=== PATIENT | female | born 1985 | race Caucasian/White ===

== ENCOUNTER 2017-05-31 18:24 | Emergency (ER) | payer OTHER ==
[2017-05-31 18:29] VITALS: BP 99/56
[2017-05-31 19:11] LABS: BILIRUBIN,URINE NEGATIVE (NEGATIVE); BLOOD/HEMOGLOBIN,URINE NEGATIVE (NEGATIVE); GLUCOSE, URINE NEGATIVE (NEGATIVE); KETONES,URINE NEGATIVE (NEGATIVE); LEUKOCYTE ESTERASE ,URINE 1+ (NEGATIVE); NITRITES,URINE NEGATIVE (NEGATIVE); PROTEIN,URINE 1+ (NEGATIVE); UROBILINOGEN,URINE 1+ (NORMAL)
[2017-05-31 19:16] LABS: APPEARANCE,URINE HAZY (CLEAR); BACTERIA,URINE 1+ /HPF (NEGATIVE); COLOR,URINE YELLOW (YELLOW); RBC,URINE 0-2 /HPF (NEGATIVE); SQUAMOUS EPITHELIAL CELL,UR FEW /HPF (NEGATIVE)
[2017-05-31] MEDS ORDERED: BRETHINE INJ 1 MG VIAL ONE (20:03)
[2017-05-31] MEDS ORDERED: BRETHINE INJ 1 MG VIAL SC ONE (20:06)
== END 2017-05-31 20:44 | disposition home or self-care (01) ==
LOC: ER 18:39
DX: R10.84 Generalized abdominal pain (principal); Z3A.33 33 weeks gestation of pregnancy
CPT/HCPCS: 81001; 96372; 99284; J3105